=== PATIENT | female | born 1995 | race Caucasian/White ===

== ENCOUNTER 2021-04-10 15:07 | Emergency (ER) | payer SELFPAY ==
[2021-04-10 15:20] VITALS: BP 134/80; PULSE 84; RESP 16; TEMP 36.4; O2SAT 97
--- NOTE | 2021-04-10 15:23 | DI.RAD.S_ITS ---
PROCEDURE: XR ANKLE RT MIN 3V INDICATIONS: fall TECHNIQUE: 3 views of the ankle were acquired. COMPARISON: None. FINDINGS: Bones: No fractures or dislocations. Ankle mortise is normally aligned. No suspicious bony lesions. Soft tissues: No tibiotalar joint effusion. Achilles tendon appears normal. IMPRESSION: No acute fracture. No osseous lesion. If symptoms and/or clinical suspicion for pathology persist, further assessment with repeat, or advanced imaging (e.g., CT, MRI, or bone scan) may be helpful for further assessment. Dictated by: Agustina Russell M.D. on 04/10/2021 at 15:36 Approved by: Agustina Russell M.D. on 04/10/2021 at 15:36
[2021-04-10 18:42] VITALS: BP 136/67; PULSE 74; RESP 16; TEMP 37; O2SAT 98
--- NOTE | 2021-04-10 18:48 | PC.NURSE ---
Patient was rock climbing and fell from about 4 to 6 feet in height and landed onto her right ankle. She denies LOC and hitting her head. Reports being unable to bear weight. Swelling and some bruising noted. Pedal pulse present. Pain /. Has been taking 2 ibuprofen each day. Ice applied.
--- NOTE | 2021-04-10 19:17 | ED_ITS ---
HPI - Extremity Injury (Lower) <PAULETTE Pepe - Last Filed: 04/10/21 21:14> General Chief Complaint: Extremity Injury, Lower Stated Complaint: fell and hurt rt ankle Time Seen by Provider: 04/10/21 18:45 Source: patient Mode of arrival: Ambulatory History of Present Illness HPI Narrative: 25-year-old female presents to the emergency department for rolling her ankle 2 days ago and having increased swelling and pain. Patient is unable to bear weight at this time, flexion and extension are tolerable however eversion and inversion are very limited due to pain. Patient has been using crutches, an Herman wrap and has been taking ibuprofen for the pain. Review of Systems <PAULETTE Pepe - Last Filed: 04/10/21 21:14> Review of Systems Narrative: General: denies fever, chills Head/Neck: denies headache, neck pain Eyes: denies visual changes, eye pain Cardio: denies chest pain, palpitations Respiratory: denies shortness of breath, cough GI: denies abdominal pain, nausea, vomiting, or diarrhea : denies dysuria, hematuria MSK: Endorses right ankle pain, denies any muscle weakness, or decreased sensation distal to her injury Skin: denies rash, itching Neuro: denies numbness, tingling Exam <PAULETTE Pepe - Last Filed: 04/10/21 21:14> Narrative Exam Narrative: Independently reviewed vitals signs and nursing notes. General: Awake, alert, nontoxic, no cardiorespiratory distress Head/Neck: Atraumatic, neck full range of motion Eyes: EOMI, conjunctiva normal Nose: nares patent, no rhinorrhea Cardio: Regular rate and rhythm, no peripheral edema Respiratory: respirations unlabored without wheezing, stridor, or rales. No retractions. GI: Abdomen soft, nontender MSK: Moves all extremities, neurovascularly intact Skin: Normal capillary refill, no rash Neuro: Normal speech and cognition, normal gait Initial Vital Signs Initial Vital Signs: Vital Signs Temperature 97.5 F L 04/10/21 15:20 Pulse Rate 84 04/10/21 15:20 Respiratory Rate 16 04/10/21 15:20 Blood Pressure 134/80 04/10/21 15:20 Pulse Oximetry 97 04/10/21 15:20 <Mode Diallo DO - Last Filed: 04/18/21 04:50> Initial Vital Signs Initial Vital Signs: Vital Signs Temperature 97.5 F L 04/10/21 15:20 Pulse Rate 84 04/10/21 15:20 Respiratory Rate 16 04/10/21 15:20 Blood Pressure 134/80 04/10/21 15:20 Pulse Oximetry 97 04/10/21 15:20 Course <PAULETTE Pepe - Last Filed: 04/10/21 21:14> Orders Ordered: ED Orders 04/10/21 15:23 XR ankle RT min 3V Stat Vital Signs Vital signs: Vital Signs - 8 hr 04/10/21 15:20 04/10/21 18:42 04/10/21 19:50 Temperature 97.5 F L 98.6 F Pulse Rate 84 74 90 Respiratory Rate 16 16 Blood Pressure 134/80 136/67 116/79 Pulse Oximetry 97 98 98 <Mode Diallo DO - Last Filed: 04/18/21 04:50> Orders Ordered: ED Orders 04/10/21 15:23 XR ankle RT min 3V Stat Vital Signs Vital signs: Vital Signs - 8 hr 04/10/21 15:20 04/10/21 18:42 04/10/21 19:50 Temperature 97.5 F L 98.6 F Pulse Rate 84 74 90 Respiratory Rate 16 16 Blood Pressure 134/80 136/67 116/79 Pulse Oximetry 97 98 98 MDM - Extremity Injury (Lower) <PAULETTE Pepe - Last Filed: 04/10/21 21:14> Imaging Data Extremity x-ray #1: Radiologist's Impression: PROCEDURE:? XR ANKLE RT MIN 3V ? INDICATIONS:? fall ? TECHNIQUE:? 3 views of the ankle were acquired.? ? COMPARISON:? None. ? FINDINGS:? ? Bones:? No fractures or dislocations.? Ankle mortise is normally aligned.? No suspicious bony lesions.? ? Soft tissues:? No tibiotalar joint effusion.? Achilles tendon appears normal.? ? ? IMPRESSION:? No acute fracture. No osseous lesion. If symptoms and/or clinical suspicion for pathology persist, further assessment with repeat, or advanced imaging (e.g., CT, MRI, or bone scan) may be helpful for further assessment. ? ? Dictated by: Agusitna Russell M.D. on 04/10/2021 at 15:36 ? ? Approved by: Agustina Russell M.D. on 04/10/2021 at 15:36 ? MDM Narrative Medical decision making narrative: 25-year-old female presents to the emergency department for right ankle pain after she slipped and rolled her ankle 2 days ago. X-ray was negative for fracture dislocation, mortise is normally aligned without joint effusion. Patient has moderate amount of ecchymosis surrounding her injury, and she is unable to tolerate bearing weight. Patient came in with crutches already, and was fitted in a walking boot which helped her pain significantly. She has been taking Motrin for pain, and declined need for anything additional. She will continue taking Motrin, icing, elevating and was provided a work note. Patient lives in [place] so she will not be following up with Orthopedics as this gets worse here in this state, we discussed having her contact her PCP who can arrange an orthopedic referral if this is not improving after couple of weeks. Patient is appropriate and amenable to discharge home. Vital signs are stable on repeat examination is unremarkable. Patient has been informed of results. Patient has been given strict return to ER precautions for any new or worsening symptoms. Patient understands to follow up closely with outpatient providers as instructed. Patient understands plan and agrees to discharge home. All questions and concerns answered at this time. Discharge Plan Departure Patient Disposition: Home Clinical Impression: Ankle sprain and strain Instructions: Ankle Sprain Activity Restrictions/Additional Instructions: *You have been diagnosed with of very bad sprain of your right ankle. Your x- rays negative for fracture however if your symptoms are ongoing beyond 2 weeks, please follow-up with orthopedics. You may need to have your primary care provider sent to referral, or you may call and see if you can get yourself an appointment somewhere where you wish to go. I am sorry cannot help you very much with that as it is all out of town and I do not have access to those providers. If your symptoms get worse while your here in town, please return to the emergency department for pain control or another evaluation if things have changed or if her toes become cold. Please use this boot for as long as it is painful. I hope you feel better sooner than later. Please use Motrin or ibuprofen every 6-8 hours as needed for your pain, ice, elevate as much as possible, and try to stay off it as much as possible until it is better. *What to do: *Please continue to take your regular medications as directed. [ ] New medication prescriptions sent to your pharmacy: [ ] [ ] New medication written as a paper prescription [x ] No new medications given *Please follow up with your primary care provider in 2-3 days, call for an appointment. Let them know you were seen in the Emergency Department and that we ask that you be seen in follow up. We will electronically transmit a record of today's note if your PCP is in our system *If you do not have a primary care provider please contact the [facility] Resource line at [phone]. They will ask some questions about your medical history and help get you set up with a doctor in the community. *Return to Emergency Department if you should have any new, worsening or concerning symptoms, such as [fever greater than 101F, chills, worsening pain, persistent vomiting or other bothersome symptoms] Stand Alone Forms: Work Release Note <Mode Diallo DO - Last Filed: 04/18/21 04:50> Cosign ED Attending Cosadánature Attestation: I was immediately available in the department for consultation. This documentation has been reviewed and I agree with assessment and plan. Supervised by Mode Diallo DO
[2021-04-10 19:50] VITALS: BP 116/79; PULSE 90; O2SAT 98
== END 2021-04-10 19:52 | disposition home or self-care (01) ==
PROVIDERS: Emergency Provider Nurse Practitioner Critical Care Medicine
DX: S93.401A Sprain of unspecified ligament of right ankle, initial encounter (principal); X50.1XXA Overexertion from prolonged static or awkward postures, initial encounter
CPT/HCPCS: 73610; 99283